=== PATIENT | male | born 1995 | race Caucasian/White ===

== ENCOUNTER 2017-09-02 04:11 | Emergency (ER) | payer OTHER ==
[~2017-09-02] VITALS: Ht 182.9 cm; Wt 68.0 kg
--- NOTE | 2017-09-02 04:30 | NUR ---
TO BED 6 A 22 YO MALE BIBSELF C/O LOWER ABD PAIN X 4 DAYS. +N/V, DIARRHEA X 15 EPISODES SINCE 2099. AAOX4, AMBULATORY WITH STEADY GAIT, VSS, NAD NOTED. NONDIAPHORETIC. GOWNED. COMFORT MEASURES RENDERED.
[2017-09-02] MEDS ORDERED: IV D5 LR 1,000 ML IV ONE (05:02)
[2017-09-02] MEDS ORDERED: ONDANSETRON HCL/PF 4 MG/2 ML VIAL ONE (05:06)
[2017-09-02] MEDS ORDERED: KETOROLAC TROMETHAMINE INJ 30 MG/ML VIAL ONE (05:06)
--- NOTE | 2017-09-02 05:15 | NUR ---
STARTED A SALINE LOCK ON THE RAC G18,BLOOD DRAWN AND SENT TO LAB.
--- NOTE | 2017-09-02 05:20 | NUR ---
MEDICATED PATIENT ORDERED BY DR DELGADO.
[2017-09-02] MEDS ORDERED: ONDANSETRON HCL/PF 4 MG/2 ML VIAL IVP ONE (05:30)
[2017-09-02] MEDS ORDERED: KETOROLAC TROMETHAMINE INJ 30 MG/ML VIAL IV ONE (05:30)
[2017-09-02 05:32] LABS: EOSINOPHILS % (AUTO) 0.9 % (0.0-6.0); HEMATOCRIT 53 % (39-51); HEMOGLOBIN 18.2 g/dL (13.5-17.5); LYMPHOCYTES % (AUTO) 14.9 % (20.0-44.0); MEAN CORPUSCULAR HEMOGLOBIN 30 PG (26.0-33.0); MEAN CORPUSCULAR HGB CONC 35 g/dl (31.0-36.0); MEAN CORPUSCULAR VOLUME 86 fL (80-96); NEUTROPHILS % (AUTO) 80.8 % (43.0-81.0); PLATELET COUNT (AUTO) 73 /CMM (150-450); RDW COEFFICIENT OF VARIATION 12.4 (11.5-15.0); RED BLOOD CELL COUNT(AUTO) 6.17 MIL/uL (4.5-6.0)
[2017-09-02 05:33] LABS: BASOPHILS % (AUTO) 0.4 % (0.0-2.0); EOSINOPHILS # (AUTO) 0.1 /CMM (0.0-0.7); MONOCYTES # (AUTO) 0.2 /CMM (0.1-1.30); NEUTROPHILS # (AUTO) 5.7 /CMM (1.8-8.9)
[2017-09-02 05:44] LABS: CALCIUM, SERUM 8.9 mg/dL (8.5-10.1); CREATININE 1.4 mg/dL (0.6-1.3); POTASSIUM 3.7 mmol/L (3.5-5.1)
[2017-09-02 05:47] LABS: BAND % (MANUAL) 9 % (0.0-5.0); LYMPHOCYTES % (MANUAL) 15 % (16-48); MONOCYTES % (MANUAL) 3 % (0-11.0); NEUTROPHILS % (MANUAL) 73 (42-76)
[2017-09-02 06:10] LABS: ALBUMIN 3.9 g/dL (3.4-5.0); BILIRUBIN,DIRECT 0.2 mg/dL (0.0-0.2); BILIRUBIN,TOTAL 1.3 mg/dL (0.2-1.0); TOTAL PROTEIN, SERUM 7.3 g/dL (6.4-8.2)
[2017-09-02] MEDS ORDERED: IV LR 1000 ML 1,000 ML IV ONE (06:19)
[2017-09-02] MEDS ORDERED: DICYCLOMINE HCL INJ 20 MG/2 ML AMPUL IM ONE (06:21)
[2017-09-02] MEDS ORDERED: DICYCLOMINE HCL 10 MG CAPSULE PO ONE ×2 (06:24→06:30)
--- NOTE | 2017-09-02 07:23 | NUR ---
IV removed. Catheter intact and site benign. Pressure and 4x4 applied to site. No bleeding noted. Patient discharged to home in stable condition. Written and verbal after care instructions given. Patient verbalizes understanding of instruction. Patient is ambulatory with steady gait, no further complaints.
[2017-09-02 07:24] VITALS: BP 116/54
== END 2017-09-02 07:25 | disposition home or self-care (01) ==
LOC: ER 04:16
DX: R19.7 Diarrhea, unspecified (principal); R11.2 Nausea with vomiting, unspecified; Z88.0 Allergy status to penicillin; Z88.2 Allergy status to sulfonamides; Z88.1 Allergy status to other antibiotic agents
CPT/HCPCS: 36415; 80048; 80076; 83690; 85025; 96361; 96374; 96375; 99284; A4606; J0500; J1885; J2405; J3490 ×2; J7120 ×2; Z7610